=== PATIENT | male | born 1985 | race Caucasian/White ===

== ENCOUNTER 2020-12-21 13:30 | Emergency (ER) | payer OTHER ==
[~2020-12-21] VITALS: Ht 177.8 cm; Wt 82.8 kg
[2020-12-21 13:41] VITALS: BP 112/77
[2020-12-21] MEDS ORDERED: FLUORESCEIN OPHTHALMIC 1 MG STRIP EACHEYE ONE (14:00)
[2020-12-21] MEDS ORDERED: PROPARACAINE OPHTH 0.5%, 15ML EACHEYE ONE (14:00)
[2020-12-21] MEDS ORDERED: FLUORESCEIN OPHTHALMIC 1 MG STRIP ONE (14:06)
[2020-12-21] MEDS ORDERED: PROPARACAINE OPHTH 0.5%, 15ML ONE (14:08)
--- NOTE | 2020-12-21 14:17 | NUR ---
TASK RN: CHEYENNE THOMSON AT BEDSIDE.
--- NOTE | 2020-12-21 14:32 | NUR ---
ERP AT BS
--- NOTE | 2020-12-21 14:55 | NUR ---
Patient given discharge instructions and they have confirmed that they understand the instructions. Patient ambulatory with steady gait.
== END 2020-12-21 14:56 | disposition home or self-care (01) ==
LOC: ED 14:40
DX: H10.32 Unspecified acute conjunctivitis, left eye (principal); H57.12 Ocular pain, left eye
CPT/HCPCS: 99283